=== PATIENT | female | born 1935 | race Caucasian/White ===

== ENCOUNTER → 2016-03-09 | Outpatient (CLI) | payer OTHER ==
--- NOTE | 2016-03-09 08:55 | US ---
Ultrasound Extremity Nonvascular. HISTORY: Tender mass right ankle. FINDINGS: Ultrasound was performed of the anterior right ankle at the area of palpable abnormality. T his corresponds to an echogenic foci with shadowing suggesting a calcification measuring 9 mm. This i s in the subcutaneous fat superficial to the muscle, extensor digitorum longus muscle and central ten don. IMPRESSION: 9 mm focal area of calcification in the subcutaneous fat corresponding to the palpable ab normality. This could represent calcific deposition disease or soft tissue calcification or ossificat ion from trauma.
== END ==
LOC: BMCIMAGING 07:50
PROVIDERS: ATTEND Internal Medicine
DX: R22.41 Localized swelling, mass and lump, right lower limb (principal)

== ENCOUNTER → 2016-08-02 | Outpatient (CLI) | payer OTHER | LOC: BMCIMAGING 10:57 | PROVIDERS: ATTEND Emergency Medicine | DX: M25.571 Pain in right ankle and joints of right foot (principal); M79.89 Other specified soft tissue disorders ==

== ENCOUNTER → 2017-08-15 | Outpatient (CLI) | payer OTHER | LOC: BMCIMAGING 07:58 | PROVIDERS: ATTEND Internal Medicine Gastroenterology | DX: K74.69 Other cirrhosis of liver (principal); I70.0 Atherosclerosis of aorta ==

== ENCOUNTER → 2018-01-25 | Outpatient (CLI) | payer OTHER | LOC: BMCIMAGING 14:33 | PROVIDERS: ATTEND Internal Medicine | DX: R91.8 Other nonspecific abnormal finding of lung field (principal); J90 Pleural effusion, not elsewhere classified ==

== ENCOUNTER → 2018-02-07 | Outpatient (CLI) | payer OTHER | LOC: BMCIMAGING 13:16 | PROVIDERS: ATTEND Internal Medicine | DX: J18.9 Pneumonia, unspecified organism (principal); J90 Pleural effusion, not elsewhere classified ==

== ENCOUNTER 2018-02-11 11:25 | Inpatient (IN) | payer OTHER ==
--- NOTE | 2018-02-11 11:47 | EDPHY ---
H & P Time Seen by Provider: 02/11/18 11:31 HPI/ROS: CHIEF COMPLAINT: Cough and fatigue HISTORY OF PRESENT ILLNESS: Patient was 1st diagnosed with pneumonia about 10 days ago by her primary care physician Dr. Fina Dowd. She had been having a fever and chills for 2 weeks. She was initially treated with azithromycin and is currently on Levaquin. She is feeling severe fatigue, continued to have worse cough. Feels she can't take care of herself at home. Little bit short of breath but no chest pain and no sputum production, no hemoptysis or leg swelling. REVIEW OF SYSTEMS: Eye: no change in vision ENT: no sore throat Cardiac: no chest pain or syncope Pulmonary: HPI Abdomen: no vomiting, diarrhea, abdominal pain Musculoskeletal: no back pain Skin: no rash Neuro: no headache Constitutional: HPI : no urinary symptoms A comprehensive 10 point review of systems is otherwise negative aside from elements mentioned in the history of present illness. PAST MEDICAL HISTORY: Includes hepatitis-C, macular degeneration, depression, bladder cancer. Social history: Here with son, smoker General Appearance: Alert and conversant, cooperative. Eyes: No scleral icterus. ENT, Mouth: Dry mucous membranes. Respiratory: Decreased breath sounds at the right base on the right midlung. Cardiovascular: Regular rate and rhythm. Gastrointestinal: Abdomen is soft and non tender. Neurological: Alert, face symmetric, normal motor and sensory in extremities. Skin: Warm and dry, no rashes. Musculoskeletal: No peripheral edema. Psychiatric: Not agitated. Emergency Department course/MDM: Admission for pneumonia and hypoxemia with O2 sat 84%. IV fluids for clinical dehydration. Respiratory pathogen panel testing. 1230: D-dimer screening initially considered for pulmonary embolism with normal WBC and afebrile. After discussion with hospitalist will do CTA given higher suspicion for alternative diagnosis with normal WBC, afebrile, not getting better after 2 separate antibiotic courses, elevated D-dimer. IV Levaquin 750. IV antibiotics, hospitalist admission. Does not have SIRS criteria or severe sepsis on admission. 1330: Results and plan reviewed with patient and son. Additional oxygen applied on arrival. Smoking Status: Current some day smoker Constitutional: Initial Vital Signs Temperature (C) 36.6 C 02/11/18 11:34 Heart Rate 70 02/11/18 11:34 Respiratory Rate 20 02/11/18 11:34 Blood Pressure 109/64 12/23/18 11:34 O2 Sat (%) 84 L 02/11/18 11:34 O2 Delivery Mode Nasal Cannula O2 (L/minute) 2 Allergies/Adverse Reactions: azithromycin Allergy (Verified 02/11/18 12:52) Other-Enter Comments Penicillins Allergy (Verified 02/11/18 12:52) Other-Enter Comments Home Medications: Medication Instructions Recorded Albuterol Sulfate [Ventolin Hfa] 1 - 2 puffs IH Q4H PRN 02/11/18 Carboxymethylcellulose Sodium 1 - 2 drops EACHEYE DAILY PRN 02/11/18 [Refresh Tears] Escitalopram Oxalate [Lexapro] 5 mg PO DAILY 02/11/18 LORazepam [Ativan (*)] 0.25 mg PO HS PRN 02/11/18 levOFLOXACIN [Levofloxacin] 500 mg PO DAILY 02/11/18 Medical Decision Making - Diagnostics Imaging Results: Imaging Impressions Chest X-Ray 02/11/18 11:58 Impression: 1. Prominent interstitial markings diffusely with patchy bilateral bibasilar infiltrates and small effusions. Consider bilateral pneumonia versus pulmonary edema possibly from cardiogenic source or systemic process such as drug reaction. Chest/Thorax CTA 02/11/18 12:46 Impression: 1. No evidence of pulmonary embolus using CT protocol. 2. Prominent interstitial markings diffusely bilaterally with focal dense consolidation/pneumonia suspected inferior aspect right upper lobe anteromedially. 3. Bilateral pleural effusions moderate on the right and mild on the left with adjacent compressive atelectatic change as well as subsegmental atelectasis suspected inferior lingula. This could be secondary to cardiogenic edema versus interstitial infiltrate with reactive effusions Imaging: I viewed and interpreted images myself Differential Diagnosis: Differential diagnosis considered for shortness of breath including but not limited to pulmonary infectious process, COPD, asthma, pulmonary embolus and congestive heart failure. Consult/Admit Bed Type: [place] [id number] Critical Care Time: Critical care time spent by me, Dr. Freeman, exclusively with the care of this patient was 30 minutes, exclusive of PA or SYSTEMS ARCHITECT time and exclusive of separate procedures. The organ system at risk was pulmonary with hypoxemia and I ordered IV fluids, supplemental oxygen, IV antibiotics to stabilize the patient and prevent worsening of the patient's condition. - Data Points Laboratory Results: Laboratory Results 02/11/18 11:55 02/11/18 11:55 02/11/1818 02/11/18 12:06 11:55 11:55 WBC 4.16 10^3/uL 10^3/uL (3.80-9.50) RBC 4.62 10^6/uL 10^6/uL (4.18-5.33) Hgb 15.7 g/dL g/dL (12.6-16.3) Hct 45.7 % % (38.0-47.0) MCV 98.9 fL fL (81.5-99.8) MCH 34.0 pg pg (27.9-34.1) MCHC 34.4 g/dL g/dL (32.4-36.7) RDW 13.1 % % (11.5-15.2) Plt Count 206 10^3/uL 10^3/uL (150-400) MPV 9.3 fL fL (8.7-11.7) Neut % (Auto) 72.2 % % (39.3-74.2) Lymph % (Auto) 11.5 % L % (15.0-45.0) [place] % (Auto) 12.5 % % (4.5-13.0) Eos % (Auto) 2.2 % % (0.6-7.6) Baso % (Auto) 1.4 % % (0.3-1.7) Nucleat RBC Rel Count 0.0 % % (0.0-0.2) Absolute Neuts (auto) 3.00 10^3/uL 10^3/uL (1.70-6.50) Absolute Lymphs (auto) 0.48 10^3/uL L 10^3/uL (1.00-3.00) Absolute Monos (auto) 0.52 10^3/uL 10^3/uL (0.30-0.80) Absolute Eos (auto) 0.09 10^3/uL 10^3/uL (0.03-0.40) Absolute Basos (auto) 0.06 10^3/uL 10^3/uL (0.02-0.10) Absolute Nucleated RBC 0.00 10^3/uL 10^3/uL (0-0.01) Immature Gran % 0.2 % % (0.0-1.1) Immature Gran # 0.01 10^3/uL 10^3/uL (0.00-0.10) RBC/WBC/PLT Morphology TNP Platelet Estimate TNP PT 15.0 SEC SEC (12.0-15.0) INR 1.16 (0.83-1.16) APTT 29.5 SEC SEC (23.0-38.0) D-Dimer VBG Lactic Acid 2.0 mmol/L mmol/L (0.7-2.1) Sodium Potassium Chloride Carbon Dioxide Anion Gap BUN Creatinine Estimated GFR Glucose Calcium Total Bilirubin 02/11/18 02/11/18 11:55 11:50 WBC RBC Hgb Hct MCV MCH MCHC RDW Plt Count MPV Neut % (Auto) Lymph % (Auto) [place] % (Auto) Eos % (Auto) Baso % (Auto) Nucleat RBC Rel Count Absolute Neuts (auto) Absolute Lymphs (auto) Absolute Monos (auto) Absolute Eos (auto) Absolute Basos (auto) Absolute Nucleated RBC Immature Gran % Immature Gran # RBC/WBC/PLT Morphology Platelet Estimate PT INR APTT D-Dimer 2.16 ug/mLFEU H ug/mLFEU (0.00-0.50) VBG Lactic Acid Sodium 135 mEq/L mEq/L (135-145) Potassium 4.3 mEq/L mEq/L (3.5-5.2) Chloride 106 mEq/L mEq/L (97-110) Carbon Dioxide 23 mEq/l mEq/l (22-31) Anion Gap 6 mEq/L mEq/L (6-14) BUN 19 mg/dL mg/dL (7-23) Creatinine 0.8 mg/dL mg/dL (0.6-1.0) Estimated GFR > 60 Glucose 106 mg/dL H mg/dL (70-100) Calcium 8.8 mg/dL mg/dL (8.5-10.4) Total Bilirubin 1.4 mg/dL mg/dL (0.1-1.4) Medications Given: Levofloxacin/Dextrose (Levaquin 750 Mg (Premix)) 150 mls @ 100 mls/hr IV EDNOW ONE PRN Reason: Protocol Stop: 02/11/18 14:17 Last Admin: 02/11/18 12:55 Dose: 150 mls Discontinued Medications Sodium Chloride (Ns) 1,200 mls @ 2,400 mls/hr 30 ml/kg infuse over 30 min ( 1200 ml) IV EDNOW ONE PRN Reason: Protocol Stop: 02/11/18 12:26 Last Admin: 02/11/18 12:10 Dose: 1,200 mls Departure - Departure Disposition: [facility] Inpatient Acute Clinical Impression: Acute respiratory failure Qualifiers: Respiratory failure complication: hypoxia Qualified Code(s): J96.01 - Acute respiratory failure with hypoxia Pneumonia Qualifiers: Pneumonia type: due to unspecified organism Laterality: right Lung location: lower lobe of lung Qualified Code(s): J18.1 - Lobar pneumonia, unspecified organism Condition: Fair
[2018-02-11] MEDS ORDERED: NS 1,200 ML IV ONE (11:57)
[2018-02-11 12:07] LABS: PLATELET COUNT 206 10^3/uL (150-400)
[2018-02-11 12:19] LABS: INR 1.16 (0.83-1.16)
[2018-02-11] MEDS ORDERED: IOPAMIDOL (ISOVUE 370) 100 ML BTL IV ONE (12:57)
[2018-02-11] MEDS ORDERED: LORazepam 0.5 MG TAB PO PRN (14:19)
[2018-02-11] MEDS ORDERED: TEARS/DEXTRAN 70/HYPROMELLOSE 15 ML OPHT.BTL EACHEYE PRN (14:29)
[2018-02-11] MEDS ORDERED: ACETAMINOPHEN 325 MG TAB PO PRN (14:50)
[2018-02-11] MEDS ORDERED: ONDANSETRON 4 MG/2 ML VIAL IVP PRN (14:50)
[2018-02-11] MEDS ORDERED: ONDANSETRON DISINTEGRATING 4 MG TAB PO PRN (14:50)
[2018-02-11] MEDS ORDERED: ALBUTEROL 3 ML DEYVIAL IH PRN (14:50)
--- NOTE | 2018-02-11 14:57 | PDGENHP ---
History and Physical - History of Present Illness 82 yo female p/w SOB. Patient was 1st diagnosed with pneumonia about 10 days ago by her primary care physician Dr. Fina Dowd. She had been having a fever and chills for 2 weeks. She was initially treated with azithromycin and is currently on Levaquin. She is feeling severe fatigue, continued to have worse cough. no chest pain and no sputum production, no hemoptysis or leg swelling. no palpitations +tobacco use, recently quit no hx of CAD, CHF Does not meet Sepsis/SIRS criteria PAST MEDICAL HISTORY: Includes hepatitis-C, macular degeneration, depression, bladder cancer. Social history: Here with son, smoker FmHx: non contributory Studies: no leukocytosis resp panel negative CXR: bilateral infiltrates CTA: no PE. patchy infiltrates, edema vs pneumonia, moderate right pleural effusion History Information - Allergies/Home Medication List Allergies/Adverse Reactions: azithromycin Allergy (Verified 02/11/18 12:52) Other-Enter Comments Penicillins Allergy (Verified 02/11/18 12:52) Other-Enter Comments Home Medications: Albuterol Sulfate [Ventolin Hfa] 1 - 2 puffs IH Q4H PRN 02/11/18 [Last Taken Unknown] Carboxymethylcellulose Sodium [Refresh Tears] 1 - 2 drops EACHEYE DAILY PRN [Last Taken Unknown] Escitalopram Oxalate [Lexapro] 5 mg PO DAILY 02/11/18 [Last Taken 02/06/18] LORazepam [Ativan (*)] 0.25 mg PO HS PRN 02/11/18 [Last Taken 02/09/18] levOFLOXACIN [Levofloxacin] 500 mg PO DAILY 02/11/18 [Last Taken 02/11/18] I have personally reviewed and updated: medical history, social history - Social History Smoking Status: Current some day smoker Review of Systems Review of Systems: ROS: 10pt was reviewed & negative except for what was stated in HPI & below Physical Exam Physical Exam: Temp Pulse Resp BP Pulse Ox 36.8 C 77 20 107/61 90 L 02/11/18 14:15 02/11/18 14:15 02/11/18 14:15 02/11/18 14:15 02/11/18 14:15 O2 (L/minute) 2 Constitutional: no apparent distress Eyes: PERRL, EOMI Ears, Nose, Mouth, Throat: moist mucous membranes, hearing normal Cardiovascular: regular rate and rhythym, No edema Respiratory: no respiratory distress, reduced air movement, expiratory wheeze, No rhonchi, No other (no crackles) Gastrointestinal: normoactive bowel sounds Skin: warm Neurologic: AAOx3 Psychiatric: interacting appropriately, not anxious, not encephalopathic Lymph, Heme, Immunologic: No petechiae Lab Data & Imaging Review 02/11/18 11:55 02/11/18 11:55 WBC 4.16 10^3/uL (3.80-9.50) 02/11/18 11:55 RBC 4.62 10^6/uL (4.18-5.33) 02/11/18 11:55 Hgb 15.7 g/dL (12.6-16.3) 02/11/18 11:55 Hct 45.7 % (38.0-47.0) 02/11/18 11:55 MCV 98.9 fL (81.5-99.8) 02/11/18 11:55 MCH 34.0 pg (27.9-34.1) 02/11/18 11:55 MCHC 34.4 g/dL (32.4-36.7) 02/11/18 11:55 RDW 13.1 % (11.5-15.2) 02/11/18 11:55 Plt Count 206 10^3/uL (150-400) 02/11/18 11:55 MPV 9.3 fL (8.7-11.7) 02/11/18 11:55 Neut % (Auto) 72.2 % (39.3-74.2) 02/11/18 11:55 Lymph % (Auto) 11.5 % (15.0-45.0) L 02/11/18 11:55 [place] % (Auto) 12.5 % (4.5-13.0) 02/11/18 11:55 Eos % (Auto) 2.2 % (0.6-7.6) 02/11/18 11:55 Baso % (Auto) 1.4 % (0.3-1.7) 02/11/18 11:55 Nucleat RBC Rel Count 0.0 % (0.0-0.2) 02/11/18 11:55 Absolute Neuts (auto) 3.00 10^3/uL (1.70-6.50) 02/11/18 11:55 Absolute Lymphs (auto) 0.48 10^3/uL (1.00-3.00) L 02/11/18 11:55 Absolute Monos (auto) 0.52 10^3/uL (0.30-0.80) 02/11/18 11:55 Absolute Eos (auto) 0.09 10^3/uL (0.03-0.40) 02/11/18 11:55 Absolute Basos (auto) 0.06 10^3/uL (0.02-0.10) 02/11/18 11:55 Absolute Nucleated RBC 0.00 10^3/uL (0-0.01) 02/11/18 11:55 Immature Gran % 0.2 % (0.0-1.1) 02/11/18 11:55 Immature Gran # 0.01 10^3/uL (0.00-0.10) 02/11/18 11:55 RBC/WBC/PLT Morphology TNP 02/11/18 11:55 Platelet Estimate TNP 02/11/18 11:55 PT 15.0 SEC (12.0-15.0) 02/11/18 11:55 INR 1.16 (0.83-1.16) 02/11/18 11:55 APTT 29.5 SEC (23.0-38.0) 02/11/18 11:55 D-Dimer 2.16 ug/mLFEU (0.00-0.50) H 02/11/18 11:50 VBG Lactic Acid 2.0 mmol/L (0.7-2.1) 02/11/18 12:06 Sodium 135 mEq/L (135-145) 02/11/18 11:55 Potassium 4.3 mEq/L (3.5-5.2) 02/11/18 11:55 Chloride 106 mEq/L (97-110) 02/11/18 11:55 Carbon Dioxide 23 mEq/l (22-31) 02/11/18 11:55 Anion Gap 6 mEq/L (6-14) 02/11/18 11:55 BUN 19 mg/dL (7-23) 02/11/18 11:55 Creatinine 0.8 mg/dL (0.6-1.0) 02/11/18 11:55 Estimated GFR > 60 02/11/18 11:55 Glucose 106 mg/dL (70-100) H 02/11/18 11:55 Calcium 8.8 mg/dL (8.5-10.4) 02/11/18 11:55 Total Bilirubin 1.4 mg/dL (0.1-1.4) 02/11/18 11:55 Assessment & Plan Assessment: #Possible Pneumonia #Likely COPD Exacerbation #Fever, reported, none thus far #Bilateral pleural effusion: small left, moderate right #generalized weakness and deconditioning #likely PCMN #Weight Loss Plan: The etiology of her resp symptoms are multifactorial. I have a high suspicion that she has underlying COPD and has a COPD exacerbation. I will start her on steroids and nebs. She does not have any leukocytosis. She was given Levaquin again in the ER. Her Viral studies are negative. For now, I will not continue any abx. Will check a procalcitonin. If abx are started, would not continue Levaquin She will have a trial of Diuretics. Will obtain a TTE. The etiology of the pleural effusions is unknown. It may respond to diuretics. Given the weight loss, ascites, cytology may be important. Will order a thoracentesis. Will also order CT A/P SCD's. Can start chemical DVT proph tomorrow after thoracentesis. Dietary to evaluate for PCMN, obtain CMP
[2018-02-11] MEDS ORDERED: methylPREDNISolone SOD SUCC 125 MG/2 ML VIAL IVP ONE (15:00)
[2018-02-11] MEDS ORDERED: FUROSEMIDE 20 MG/2 ML VIAL IVP ONE (15:08)
[2018-02-11] MEDS ORDERED: [UNRECOGNIZED DRUG - OTHER] EACHEYE PRN (16:00)
[2018-02-11] MEDS ORDERED: CARBOXYMETHYLCELLULOSE EACHEYE PRN (16:00)
--- NOTE | 2018-02-11 16:30 | ASMTCMCOM ---
CM Note CM Note Notes: Case Management Chart Review for Discharge Support: Patient is a 82 year old female who presented to [facility] ED for cough and fatigue, she had been diagnosed with pneumonia about 10 days ago by her PCP Dr. Fina Dowd, treated with antibiotics. Past medical history includes: Hepatitis C, macular degeneration, depression, bladder cancer. Son was present at ED. Patient admitted and being followed for COPD exacerbation. Pending PT/OT & Dietary consult. CM to follow. D/C Plan: TBD Date Signed: 02/11/2018 04:29 PM Electronically Signed By:Darlene Posey
[2018-02-11] MEDS: IPRATROPIUM/ALBUTEROL 3 ML DEYVIAL IH SCH ×2 (17:09→20:54)
--- NOTE | 2018-02-11 18:00 | PDMN ---
Medical Necessity Medical necessity: Pt meets INPT criteria per MD as of 02/11/18 and [facility] Disease GRG (est. LOS >2 MN for eval/tx of possible pneumonia, likely COPD exacerbation, bilateral pleural effusion with thoracentesis ordered, generalized weakness and deconditioning, weight loss).
[2018-02-11] MEDS ORDERED: IOPAMIDOL (ISOVUE-300) 100 ML BTL ONE (18:49)
[2018-02-12 05:21] LABS: PLATELET COUNT 165 10^3/uL (150-400)
[2018-02-12] MEDS: IPRATROPIUM/ALBUTEROL 3 ML DEYVIAL IH SCH ×4 (05:36→21:27)
[2018-02-12] MEDS: ESCITALOPRAM OXALATE 10 MG TAB PO SCH (09:43)
[2018-02-12] MEDS: predniSONE 20 MG TAB PO SCH (09:43)
--- NOTE | 2018-02-12 10:31 | ECHO ---
[email or web address] [address] [address] Main: [phone] Fax: Transthoracic Echocardiogram Name: MARVA CORNEJO MR#: [id number] Study Date: 02/12/2018 Study Time: 08:34 AM Date of : 1935 Age: 82 year(s) Height: 157.5 cm (62 in.) Weight: 40.37 kg (89 lb.) BSA: 1.35 m2 Gender: Female Examination: Echo Indication: Shortness of breath, Respiratory distress Image Quality: Contrast: Requested by: Todd Myers BP: 97 mmHg/64 mmHg Heart Rate: Rhythm: Tachycardia Indication: Shortness of breath, Respiratory distress Procedure Staff Policy Writer: Reid Muller RDCS Reading Physician: Vega Ruggiero MD Requesting Provider: Conclusions: Normal size left ventricle. Mild concentric LV hypertrophy. Global hypercontractility of the left ventricle. EF is 63 %. No regional wall motion abnormality. Normal RV function. The left atrium is normal in size. The right atrium is normal in size. The aortic valve is tri-leaflet. There is no significant aortic valve regurgitation. Hypermobile structure on non-coronary cusp on the aortic side consistent with vegetation noted on the aortic valve.. No pericardial effusion. There is an echodensity on the Non Coronary Cusp of the Aortic Valve consistent with vegeation. Well seen. No need for RITESH . Measurements: Chambers Valvular Assessment AV/MV Valvular Assessment TV/PV Normal Normal Normal Name Value Range Name Value Range Name Value Range Ao Mariela (MM): 3.3 cm (2.2 cm-3.7 AV Vmax: 1.75 m/s (1 m/s-1.7 TR Vmax: 2.90 mm/s ( - ) cm) m/s) TR PGmax: 34 mmHg ( - ) IVSd (2D): 1.1 cm (0.6 cm-1.1 AV maxP mmHg ( - ) syst. PAP: 39 mmHg ( - ) cm) LVOT Vmax: 1.56 m/s (0.7 m/s-1.1 PV Vmax: 1.11 m/s (0.6 m/s-0.9 LVDd (2D): 3.3 cm (3.9 cm-5.3 m/s) m/s) cm) MV E Vmax: 0.76 m/s ( - ) PV PGmax: 5 mmHg ( - ) LVDs (2D): 2.2 cm (2.1 cm-4 MV A Vmax: 1.28 m/s ( - ) cm) MV E/A: 0.59 ( - ) LVPWd (2D): 1.1 cm ( - ) Patient: MARVA CORNEJO Study Date: 02/12/2018 Page 1 of 2 08:34 AM LVEF (2D): 63 (>=54 %) Continued Measurements: Chambers Valvular Assessment AV/MV Valvular Assessment TV/PV Name Value Name Value Name Value LADs Lon.2 cm MV E' Septal: 0.11 m/s CVP (est.): 5 mmHg LA Area: 18.9 cm2 MV E/E' Septal: 6.70 LA Volume: 46 ml MV E/E' Lateral: 5.80 LA Volume Index: 34.1 ml/m2 Findings: Left Ventricle: Normal size left ventricle. Mild concentric LV hypertrophy. Global hypercontractility of the left ventricle. EF is 63 %. No regional wall motion abnormality. Right Ventricle: Normal size right ventricle. Normal RV function. Left Atrium: The left atrium is normal in size. Right Atrium: The right atrium is normal in size. Mitral Valve: Mild mitral valve leaflet calcification is present. Trivial mitral valve regurgitation. No mitral stenosis is present. Aortic Valve: The aortic valve is tri-leaflet. There is no significant aortic valve regurgitation. Hypermobile structure on non-coronary cusp on the aortic side consistent with vegetation noted on the aortic valve.. Tricuspid Valve: The tricuspid valve appears normal. Trivial to mild tricuspid valve regurgitation. The pulmonary artery pressure is normal. Pulmonic Valve: The pulmonic valve is normal in appearance and function. Aorta: The aorta is normal. Pericardium: No pericardial effusion. (No Signature Object) Patient: MARVA CORNEJO Study Date: 02/12/2018 Page 2 of 2 08:34 AM [id number]
[2018-02-12] MEDS ORDERED: LIDOCAINE 1% 300 MG/30 ML SDV ONE (13:09)
--- NOTE | 2018-02-12 13:48 | HOSPPROG ---
Hospitalist Progress Note Assessment/Plan: DIAGNOSES: *Acute Hypoxemic Resp Failure needing O2 *RML consolidation and R pleural effusion - ? Etiology *Absence of fever, normal wbc, and normal procalcitonin here *LDH > 1400 *Ao valve vegetation (otherwise nl echo) *negative resp pathogen pcr panel, nothing in blood cxs so far *adrenal gland nodule on CT stable from prior study *hx of treated Hep C: cirrhosis and portal HTN seen on CT at present; also a couple of hepatic cysts that appear likely benign to me *hx of Bladder Cancer Absence of fever and normal procalcitonin make pneumonia less likely, but her tachycardia, cough, and reported outpatient fevers would be suggestive of pneumonia. ? if she could have postobstructive disease. The very high LDH could be concerning for a malignancy. Echo shows no signs of CHF or ischemia, and her clinical scenario does not really suggest cardiac cause. Notably however there is and Ao valve vegetation. The clinical significance of this is uncertain at the moment. PLANS: * She will have a thoracentesis today and I have ordered cytologies, cell count , LDH, pH and other labs * At this time will continue prednisone and without antibiotic and observe closely for her progress * Further plans after we have her pleural fluid studies and depending on her clinical progress * She will need ongoing radiologic evaluations to assess for resolution of the infiltrate * Follow blood cultures closely, and will review her case with Infectious Disease and pulmonology if we do not come to obvious clinical diagnosis SUBJECTIVE: Feel somewhat better today with better energy No chills or sweats No shortness of breath with oxygen on at rest but does get a bit winded with exertion here Still some cough No pain OBJECTIVE Vitals reviewed: Remains tachycardic with pulse in the 110-120 range. No fevers, otherwise stable vitals overall Is still requiring 2-3 L oxygen Web Producer, my review: Sinus Exam: alert oriented reasonably relaxed Fairly thin woman with minimal subcutaneous fat skin warm dry color ok resps not labored at rest on oxygen lungs clear BSs heart regular abd soft nondistended nontender, bowel sounds present limbs warm, no edema iv site ok Lab data: procalcitonin is negative Echocardiogram: nl EF 63, no WMA, normal RV fxn. A vegetation is seen on noncoronary cusp of Ao Valve I reviewed her CT scan images from admission, there is moderate pleural effusion on the R, with a RML consolidation; I do not see a mass but with the it infiltrate, effusions and atelectasis it would be possible to potentially miss something. Objective: Vital Signs Temp Pulse Resp BP Pulse Ox 36.6 C 111 H 16 125/65 H 91 L 02/12/18 12:00 02/12/18 12:00 02/12/18 12:00 02/12/18 12:00 02/12/18 12:00 Laboratory Results 02/12/18 04:43 02/12/18 04:54 02/11/18 02/12/18 02/13/18 06:59 06:59 06:59 Intake Total 1400 Output Total 1800 Balance -400 PT 15.0 SEC (12.0-15.0) 02/11/18 11:55 INR 1.16 (0.83-1.16) 02/11/18 11:55 - Time Spent With Patient Time Spent with Patient: greater than 35 minutes Time Spent with Patient: Greater than 35 minutes spent on this patients care, greater than 50% of time spent counseling, educating, and coordinating care regarding the above mentioned plan. ICD10 Worksheet Patient Problems: Problems Problem Status Onset Acute respiratory failure Acute Chronic Disease Mgmt/Transitional Care Acute Pneumonia Acute
[2018-02-12] MEDS: CEPACOL LOZENGE PO PRN ×2 (15:55→19:13)
[2018-02-12] MEDS: LORazepam 0.5 MG TAB PO PRN (21:51)
[2018-02-12] MEDS: MBX SOLN 30 ML BOTTLE PO PRN (21:58)
[2018-02-13 05:02] LABS: PLATELET COUNT 172 10^3/uL (150-400)
[2018-02-13] MEDS: IPRATROPIUM/ALBUTEROL 3 ML DEYVIAL IH SCH ×4 (05:43→22:03)
[2018-02-13] MEDS: ESCITALOPRAM OXALATE 10 MG TAB PO SCH (08:43)
[2018-02-13] MEDS: predniSONE 20 MG TAB PO SCH (08:43)
--- NOTE | 2018-02-13 13:09 | HOSPPROG ---
Hospitalist Progress Note Assessment/Plan: DIAGNOSES: *Acute Hypoxemic Resp Failure needing O2 *RML consolidation and R pleural effusion (exudative) - ? Etiology *Absence of fever, normal wbc, and normal procalcitonin here *serum LDH > 1400 ? etiology *Ao valve vegetation (otherwise nl echo) *negative resp pathogen pcr panel, nothing in blood cxs so far *adrenal gland nodule on CT stable from prior study *hx of treated Hep C: cirrhosis and portal HTN seen on CT at present; also a couple of hepatic cysts that appear likely benign to me *hx of Bladder Cancer Absence of fever and normal procalcitonin make pneumonia less likely, but her tachycardia, cough, and reported outpatient fevers would be suggestive of pneumonia. ? if she could have postobstructive disease. The very high LDH could be concerning for a malignancy. Echo shows no signs of CHF or ischemia, and her clinical scenario does not really suggest cardiac cause. Notably however there is and Ao valve vegetation. The clinical significance of this is uncertain at the moment. PLANS: * continue prednisone but will try decrease to 20 mg * continue off abx * will review w pulmonology * await cytology and cultures from pl fluid * continue to increase activity Pt had many questions today which I answered for her in detail SUBJECTIVE: feels less fatigued still w a lot of cough able to walk in burr comfortably on O2 no new sxs OBJECTIVE Vitals reviewed: Remains tachycardic though now 100-108 No fevers, otherwise stable vitals overall Is still requiring oxygen but less today Proofer Prepress, my review: Sinus Exam: alert oriented reasonably relaxed Fairly thin woman with minimal subcutaneous fat skin warm dry color ok resps not labored at rest on oxygen lungs clear BSs heart regular abd soft nondistended nontender, bowel sounds present limbs warm, no edema iv site ok Lab data: pleural fluid studies: LDH 1989 (serum 1400), 2200 wbc (41% lymph, 6% pmn), 1400 rbc, pH 7.4 cbc PMNs up to 6700 today likely from steroids liver panel still mild AST elevation Echocardiogram: nl EF 63, no WMA, normal RV fxn. A vegetation is seen on noncoronary cusp of Ao Valve I reviewed her CT scan images from admission, there is moderate pleural effusion on the R, with a RML consolidation; I do not see a mass but with the it infiltrate, effusions and atelectasis it would be possible to potentially miss something. micro: all cultures negative to date neg gram stain from pleural fl negative viral resp pcr panel Objective: Vital Signs Temp Pulse Resp BP Pulse Ox 36.9 C 102 H 16 108/69 92 02/13/18 11:39 02/13/18 11:39 02/13/18 11:39 02/13/18 11:39 02/13/18 11:39 Microbiology 02/12/18 13:55 Mycobacterial Smear (GERARDO) - Final Thoracic Fluid - Aspirate 02/11/18 13:55 Gram Stain - Final Thoracic Fluid - Aspirate Laboratory Results 02/13/18 04:38 02/12/18 04:54 02/12/18 02/13/18 02/14/18 06:59 06:59 06:59 Intake Total 1400 1350 Output Total 1800 650 Balance -400 700 PT 15.0 SEC (12.0-15.0) 02/11/18 11:55 INR 1.16 (0.83-1.16) 02/11/18 11:55 - Time Spent With Patient Time Spent with Patient: greater than 35 minutes Time Spent with Patient: Greater than 35 minutes spent on this patients care, greater than 50% of time spent counseling, educating, and coordinating care regarding the above mentioned plan. ICD10 Worksheet Patient Problems: Problems Problem Status Onset Acute respiratory failure Acute Chronic Disease Mgmt/Transitional Care Acute Pneumonia Acute
--- NOTE | 2018-02-13 14:15 | ASMTCMCOM ---
CM Note CM Note Notes: Pt admitted with pneumonia but still being worked up d/t pleural effusion. She has been cleared for home by PT/OT, anticipate she will dc home with support of son when medically stable. DC Plan: Independent Date Signed: 02/13/2018 02:15 PM Electronically Signed By:Franci Parker RN
[2018-02-13] MEDS: MBX SOLN 30 ML BOTTLE PO PRN (19:30)
[2018-02-13] MEDS: LORazepam 0.5 MG TAB PO PRN (23:22)
[2018-02-14] MEDS: IPRATROPIUM/ALBUTEROL 3 ML DEYVIAL IH SCH ×4 (06:56→21:35)
[2018-02-14] MEDS: ESCITALOPRAM OXALATE 10 MG TAB PO SCH (08:58)
[2018-02-14] MEDS: predniSONE 20 MG TAB PO SCH (08:58)
--- NOTE | 2018-02-14 13:43 | HOSPPROG ---
Hospitalist Progress Note Assessment/Plan: DIAGNOSES: *Acute Hypoxemic Resp Failure needing O2, likely has chronic hypoxemia as well *RML consolidation and R pleural effusion (exudative) - ? Etiology; cultures neg to date and cytology pending *Absence of fever, normal wbc, and normal procalcitonin here *serum LDH > 1400 ? etiology *Ao valve vegetation (otherwise nl echo) *negative resp pathogen pcr panel, nothing in blood cxs so far *adrenal gland nodule on CT stable from prior study *hx of treated Hep C: cirrhosis and portal HTN seen on CT at present; also a couple of hepatic cysts that appear likely benign to me *hx of Bladder Cancer Normal temperatures at home and here, normal wbc's, normal procalcitonin, neg resp pathogen panel and cultures, and lack of symptom response to two different outpatient antibiotics would all argue against infectious etiology, however her CT findings have a typical appearance of a bacterial pneumonia among other causes. ? if she could have postobstructive disease. The very high LDH could be concerning for a malignancy such as a lymphoma though no mass is identified. Notably there is an Ao valve vegetation of unclear clinical significance on echo. Her imaging studies do show signs of obstructive dz with hyperexpansion, as expected given her long smoking history. 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, 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: Sinus Exam: alert oriented relaxed Fairly thin woman with minimal subcutaneous fat skin warm dry color ok resps not labored at rest on oxygen lungs clear BSs though diminished heart regular abd soft nondistended nontender, bowel sounds present limbs warm, no edema iv site ok Lab data: pleural fluid studies: LDH 1989 (serum 1400), 2200 wbc (41% lymph, 6% pmn), 1400 rbc, pH 7.4 micro: all cultures negative to date neg gram stain from pleural fl negative viral resp pcr panel Objective: Vital Signs Temp Pulse Resp BP Pulse Ox 36.7 C 90 18 112/72 91 L 02/14/18 07:30 02/14/18 11:20 02/14/18 11:20 02/14/18 07:30 02/14/18 11:20 Microbiology 02/11/18 13:55 Gram Stain - Final Thoracic Fluid - Aspirate 02/12/18 13:55 Mycobacterial Smear (GERARDO) - Final Thoracic Fluid - Aspirate Laboratory Results 02/13/18 04:38 02/12/18 04:54 02/13/18 02/14/18 02/15/18 06:59 06:59 06:59 Intake Total 1350 550 Output Total 650 Balance 700 550 PT 15.0 SEC (12.0-15.0) 02/11/18 11:55 INR 1.16 (0.83-1.16) 02/11/18 11:55 ICD10 Worksheet Patient Problems: Problems Problem Status Onset Acute respiratory failure Acute Chronic Disease [facility]/Transitional Care Acute Pneumonia Acute
--- NOTE | 2018-02-14 16:35 | PDCONSULT ---
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 Suspect effusion was initially neutrophilic in the process of resolving has become lymphocytic with RBCs. Differential diagnosis for lymphocytic effusions include malignancy, TB pleurisy, autoimmune disease, benign asbestos related pleural effusion, idiopathic. PH was normal however meter pH is on pleural fluid are frequently running correctly and not reliable. Typically glucose levels, WBC and LDH are most indicative of bacterial infection. Is also possible that patient has an obstructing endobronchial lesion in her right middle lobe leading to right middle lobe collapse with surrounding pneumonia. I think this is less likely however possible. Given advanced age and frailty patient is not a good surgical candidate will be treated with local XRT if there is truly an endobronchial lesion. However fishmouth appearing right middle lobes and associated right middle lobe atelectasis a relatively common the population. After risk benefit discussion with patient we have decided to perform repeat CT chest in 4-6 weeks with PFTs and repeat laboratory data including LDH. If abnormalities persist at that time will proceed with bronchoscopy # complicated parapneumonic effusion, lymphocytic # resolving pneumonia # COPD # acute hypoxemic respiratory failure # tobacco dependence PLAN # okay to discharge from pulmonary perspective # anticipate patient will need nocturnal oxygen therapy # follow-up in Pulmonary Clinic with Dr. Tang in 4-[address] chest noncontrast, PFTs and repeat labs including CBC with diff and LDH. # agree with tapering off oral corticosteroids # patient will need PFTs to qualify for pulmonary rehab, but I agree that rehabilitation is an excellent idea and will decrease future hospitalizations and improve quality of life # counseled on smoking cessation # thank you for this consult allowing me to participate in the care of this patient. Please do not hesitate to call or page with any questions or concerns. CONSULT Was asked by Dr. Neely of [facility] to evaluate this patient for pleural effusion and pneumonia in the setting of underlying COPD and possible malignancy Chief complaint Shortness of breath ALCON Koehler is a very pleasant 82-year-old female with a longstanding smoking history was initially diagnosed 2 weeks prior by her primary care physician with possible COPD exacerbation versus pneumonia. She had initially treated with azithromycin followed by Levaquin. She has had some improvements in cough and URI symptoms however still with malaise and shortness of Breath. At time of admission she denied chest pain, syncope, productive sputum production, hemoptysis, leg swelling, abdominal pain, rashes. She was found to have a moderate right sidede pleural effusion, R sided opacities, and partial RML collapse. She she was treated antibiotics, steroids and underwent thoracentesis. She continues to feel better daily. Allergies Azithromycin, penicillins however has tolerated penicillin noise and azithromycin Medications Albuterol, lorazepam, citalopram Past medical history Anxiety, COPD no PFTs in our system never seen a bar staff, tobacco dependence Social history Lives in [place] has to renders, 60+ pack-year history quit just prior to admission, no illicits, no alcohol Review of systems A comprehensive 10 point review of systems was obtained is negative except as per HPI Physical exam Vitals Afebrile, heart rate 90, blood pressure 1 of their 65 map 77, respiratory rate 16 99% 1 L nasal cannula no distress GEN: Thin NAD, up in bed, interactive NEURO: A&Ox3, CN 2-12 GI HEENT: PERRL, EOMI, MMM, OP clear NECK: supple, trachea midline CHEST normal shape, no pes excavatum CVS: rrr no m/r/g PULM: Decreased breath sounds bilaterally, no wheezes rhonchi or rales ABD: soft, NT, ND, NABS EXT: no swelling, no cyanosis, full ROM SKIN: warm, dry, intact, no rash PSYCH CAM negative, appropriate affect Data Reviewed Significant for a normal white cell count without peripheral eosinophilia, low procalcitonin, markedly elevated LDH, CO2 23 Pleural fluid with 22,000 WBCs 6000 RBCs, 41% lymphocytes, culture negative, LDH 1900, pH 7.4 I personally reviewed interpreted radiographic images well as formal radiology reads 02/11/2018 CTA chest. No PE, mild apical emphysematous changes, diffuse peribronchial thickening, hyperexpanded airways, increased bilateral interstitial markings focal opacities inferior aspect of right upper lobe right lower lobe right middle lobe. Mild to moderate right pleural effusion and small left pleural effusion. No hilar mediastinal lymphadenopathy. Serial chest x-rays after thoracentesis without Navi malacia of fluid
--- NOTE | 2018-02-14 16:38 | ASMTCMCOM ---
CM Note CM Note Notes: Received information from ANNEMARIE Narvaez pt son would like to discuss d/c needs, specifically HHC, with CM. Attempted to talk to pt about HHC first, she was with medical staff. Called pt son Mj [phone], emailed him the HHC list. Mj to research HHC and talk to pt. Mj is also researching unskilled HC for extra support in home. D/c plan of care: Likely HHC RN, which agency is TBD. Date Signed: 02/14/2018 04:38 PM Electronically Signed By:DOTTY Roblero
[2018-02-14] MEDS: MBX SOLN 30 ML BOTTLE PO PRN (19:54)
[2018-02-15] MEDS: ESCITALOPRAM OXALATE 10 MG TAB PO SCH (08:46)
[2018-02-15] MEDS: predniSONE 20 MG TAB PO SCH (08:47)
--- NOTE | 2018-02-15 14:14 | ASMTCMCOM ---
CM Note CM Note Notes: Met with pt, she has been cleared for home by PT/OT, although her son would like her to have some homecare. If pt does not qualify for skilled he may hire non skilled. CM gave son some agency names. DC Plan:TBD Date Signed: 02/15/2018 02:13 PM Electronically Signed By:Franci Parker RN
--- NOTE | 2018-02-15 17:18 | HOSPPROG ---
Hospitalist Progress Note Assessment/Plan: DIAGNOSES: *Acute Hypoxemic Resp Failure needing O2, likely has chronic hypoxemia as well *RML consolidation and R pleural effusion (exudative) - ? Etiology; cultures neg to date and cytology pending *Absence of fever, normal wbc, and normal procalcitonin here *serum LDH > 1400 ? etiology *Ao valve vegetation (otherwise nl echo) *negative resp pathogen pcr panel, nothing in blood cxs so far *adrenal gland nodule on CT stable from prior study *hx of treated Hep C: cirrhosis and portal HTN seen on CT at present; also a couple of hepatic cysts that appear likely benign to me *hx of Bladder Cancer As previously noted the most common expected cause of her illness and imaging findings would be infectious pneumonia, but all of the other findings to go along with or clarify presence of infection are missing or normal. Etiology of high LDH uncertain. At present she is clinically improving and can likely go home tomorrow. Hopefully will have path report and final culture results by then. She will need outpt f/u in pulmonary clinic, and should have repeat CT chest in a month or therabouts to ensure resolution of current findings. In the long run she should have ongoing preventive and other standard care measures for chronic lung disease, and go to pulmonary rehab. 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 Exam: alert oriented relaxed Fairly thin woman with minimal subcutaneous fat skin warm dry color ok resps not labored at rest on oxygen lungs clear BSs though diminished heart regular abd soft nondistended nontender, bowel sounds present limbs warm, no edema iv site ok Lab data: pleural fluid studies: LDH 1989 (serum 1400), 2200 wbc (41% lymph, 6% pmn), 1400 rbc, pH 7.4 micro: all cultures negative to date (blood and pleural fluid) no acid fast organisms in pleural fluid neg gram stain from pleural fl negative viral resp pcr panel Objective: Vital Signs Temp Pulse Resp BP Pulse Ox 37.1 C 96 16 105/73 94 02/15/18 15:30 02/15/18 15:30 02/15/18 15:30 02/15/18 15:30 02/15/18 15:30 Microbiology 02/11/18 13:55 Gram Stain - Final Thoracic Fluid - Aspirate Laboratory Results 02/13/18 04:38 02/12/18 04:54 02/14/18 02/15/18 02/16/18 06:59 06:59 06:59 Intake Total 550 300 Balance 550 300 PT 15.0 SEC (12.0-15.0) 02/11/18 11:55 INR 1.16 (0.83-1.16) 02/11/18 11:55 ICD10 Worksheet Patient Problems: Problems Problem Status Onset Acute respiratory failure Acute Chronic Disease Mgmt/Transitional Care Acute Pneumonia Acute
[2018-02-15] MEDS: LORazepam 0.5 MG TAB PO PRN (21:34)
[2018-02-16] MEDS: ESCITALOPRAM OXALATE 10 MG TAB PO SCH (09:10)
[2018-02-16] MEDS: predniSONE 20 MG TAB PO SCH (09:12)
--- NOTE | 2018-02-16 15:56 | HOSPPROG ---
Hospitalist Progress Note Assessment/Plan: DIAGNOSES: *Acute Hypoxemic Resp Failure needing O2, *suspect COPD and acute COPD exacerbation *RML consolidation and R pleural effusion (exudative) - was treated with outpatient antibiotics without improvement, no fever or high white count, Concern at this time for postobstructive pneumonia *suspicion for non-small cell lung cancer with mets to pleural space and metastatic pleural effusion *Absence of fever, normal wbc, and normal procalcitonin here *serum LDH > 1400 *Ao valve vegetation incidentally noted on echo (otherwise nl echo) though no fever here and nothing to currently suggest endocarditis clinically *adrenal gland nodule on CT stable from prior study *hx of treated Hep C: cirrhosis and suggestion of portal HTN seen on CT at present; also a couple of hepatic cysts that appear likely benign to me *hx of Bladder Cancer At this time with cytology back from pleural fluid showing likely non-small cell lung cancer cells she will need more definitive diagnosis. No definite mass seen on the CT but she has infiltrate that may high things, and raises suspicion for postobstructive pneumonia. I reviewed with Dr. Tang today who agrees that bronchoscopy would be a next diagnostic step. I have reviewed all of this in detail with the patient and with her son today as well and answered their questions in detail. They would prefer to trying to bronchoscopy here before she leaves the hospital, so we are attempting to see if can be scheduled tomorrow Monday. If it cannot be done over the weekend she will be discharged in come back this coming week for outpatient bronchoscopy with Dr. 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 Exam: alert oriented relaxed Fairly thin woman with minimal subcutaneous fat skin warm dry color ok resps not labored at rest on oxygen lungs clear BSs though diminished heart regular abd soft nondistended nontender, bowel sounds present limbs warm, no edema iv site ok Lab data: pleural fluid studies: LDH 1989 (serum 1400), 2200 wbc (41% lymph, 6% pmn), 1400 rbc, pH 7.4 micro: all cultures negative to date (blood and pleural fluid) no acid fast organisms in pleural fluid neg gram stain from pleural fl negative viral resp pcr panel Pathology: Results returned 02/16 with finding of malignant appearing cells suspicious for non-small cell lung cancer possibly adeno Objective: Vital Signs Temp Pulse Resp BP Pulse Ox 37.1 C 91 18 90/63 L 92 02/16/18 15:27 02/16/18 15:27 02/16/18 15:27 02/16/18 15:27 02/16/18 15:27 Microbiology 02/11/18 13:55 Gram Stain - Final Thoracic Fluid - Aspirate Laboratory Results 02/13/18 04:38 02/12/18 04:54 02/15/18 02/16/18 02/17/18 06:59 06:59 06:59 Intake Total 300 Balance 300 PT 15.0 SEC (12.0-15.0) 02/11/18 11:55 INR 1.16 (0.83-1.16) 02/11/18 11:55 - Time Spent With Patient Time Spent with Patient: greater than 35 minutes Time Spent with Patient: Greater than 35 minutes spent on this patients care, greater than 50% of time spent counseling, educating, and coordinating care regarding the above mentioned plan. ICD10 Worksheet Patient Problems: Problems Problem Status Onset Acute respiratory failure Acute Chronic Disease Mgmt/Transitional Care Acute Pneumonia Acute
[2018-02-16] MEDS: MBX SOLN 30 ML BOTTLE PO PRN (21:10)
[2018-02-16] MEDS: LORazepam 0.5 MG TAB PO PRN (21:38)
[2018-02-17] MEDS: predniSONE 20 MG TAB PO SCH (08:23)
[2018-02-17] MEDS: ESCITALOPRAM OXALATE 10 MG TAB PO SCH (08:23)
[2018-02-17] MEDS ORDERED: ALBUTEROL 3 ML DEYVIAL ONE (10:03)
[2018-02-17] MEDS ORDERED: LIDOCAINE 1% 300 MG/30 ML SDV ONE ×2 (10:04)
[2018-02-17] MEDS ORDERED: EPINEPHrine 1 MG/ML INJ ONE (10:04)
[2018-02-17] MEDS ORDERED: LIDOCAINE 2% JELLY 20 ML (UROJECT) ONE (10:14)
[2018-02-17] MEDS ORDERED: fentaNYL 100 MCG/2 ML INJ ONE (11:06)
[2018-02-17] MEDS ORDERED: MIDAZOLAM 2 MG/2 ML VIAL ONE (11:06)
[2018-02-17] MEDS ORDERED: OXYMETAZOLINE 30 ML NASAL SPRAY ONE (11:14)
[2018-02-17] MEDS ORDERED: predniSONE 5 MG TAB PO SCH (13:28)
--- NOTE | 2018-02-17 13:28 | HOSPPROG ---
Hospitalist Progress Note Assessment/Plan: *Acute Hypoxemic Resp Failure needing O2, * will need home o2 *acute COPD exacerbation * weaning steroids *RML consolidation and R pleural effusion (exudative) - was treated with outpatient antibiotics without improvement, no fever or high white count, Concern at this time for postobstructive pneumonia * watch off abx *suspicion for non-small cell lung cancer with mets to pleural space and metastatic pleural effusion * positive adenoCa on pleural fluid * s/p bronch - haven't seen report yet *Ao valve vegetation incidentally noted on echo (otherwise nl echo) though no fever here and nothing to currently suggest endocarditis clinically *adrenal gland nodule on CT stable from prior study *hx of treated Hep C: cirrhosis and suggestion of portal HTN seen on CT at present; also a couple of hepatic cysts that appear likely benign to me *hx of Bladder Cancer Subjective: s/p bronch. feels weak Objective: Vital Signs Temp Pulse Resp BP Pulse Ox 37.2 C 71 16 179/106 H 96 02/17/18 12:37 02/17/18 12:37 02/17/18 12:37 02/17/18 12:37 02/17/18 12:37 Microbiology 02/11/18 13:55 Gram Stain - Final Thoracic Fluid - Aspirate Laboratory Results 02/13/18 04:38 02/12/18 04:54 02/16/18 02/17/18 02/18/18 05:59 05:59 05:59 Intake Total 0 100 Balance 0 100 PT 15.0 SEC (12.0-15.0) 02/11/18 11:55 INR 1.16 (0.83-1.16) 02/11/18 11:55 - Physical Exam Constitutional: no apparent distress, appears nourished, not in pain Eyes: anicteric sclera, EOMI Ears, Nose, Mouth, Throat: moist mucous membranes Cardiovascular: regular rate and rhythym Respiratory: no respiratory distress, reduced air movement Gastrointestinal: normoactive bowel sounds, soft, non-tender abdomen, no palpable masses Skin: warm Neurologic: AAOx3 Psychiatric: interacting appropriately, not anxious, not encephalopathic, thought process linear ICD10 Worksheet Patient Problems: Problems Problem Status Onset Acute respiratory failure Acute Chronic Disease Mgmt/Transitional Care Acute Pneumonia Acute
--- NOTE | 2018-02-17 14:36 | PDINTPN ---
Stock Broker Progress Note Assessment/Plan: ASSESSMENT 82-year-old female with longstanding smoking history and COPD admitted with AECOPD, resolving pneumonia and complicated lymphocytic parapneumonic effusion. Some concern for postobstructive pneumonia given right middle lobe collapse however no endoscopic lesions or extrinsic compressions of airways. Pleural fluid is concerning for malignancy given preliminary cytology concern for adenocarcinoma. If this is truly adenocarcinoma stage IV by definition based on pleural effusion. However may be false-positive in the same atypical infection. Bronchoscopy with BA and transbronchial biopsies performed 2017. Differential diagnosis for lymphocytic effusions include malignancy, TB pleurisy, autoimmune disease, benign asbestos related pleural effusion, idiopathic. PH was normal however meter pH is on pleural fluid are frequently running correctly and not reliable. Typically glucose levels, WBC and LDH are most indicative of bacterial infection. Is also possible that patient has an obstructing endobronchial lesion in her right middle lobe leading to right middle lobe collapse with surrounding pneumonia. I think this is less likely however possible. Given advanced age and frailty patient is not a good surgical candidate will be treated with local XRT if there is truly an endobronchial lesion. However [place] appearing right middle lobes and associated right middle lobe atelectasis a relatively common the population. After risk benefit discussion with patient we have decided to perform repeat CT chest in 4-6 weeks with PFTs and repeat laboratory data including LDH. If abnormalities persist at that time will proceed with bronchoscopy # complicated parapneumonic effusion, lymphocytic. Possible adenocarcinoma as above # resolving pneumonia # COPD # acute hypoxemic respiratory failure # tobacco dependence # possible underlying malignancy PLAN # needs close follow-up with Dr. Tang in 7-14 days with repeat CXR just prior to visit to evaluate effusion and discussed bronchoscopy results # will need outpatient PET to evaluate for occult primary malignancy and other metastatic disease # anticipate patient will need nocturnal oxygen therapy # agree with rapidly tapering off oral corticosteroids # patient will need PFTs to qualify for pulmonary rehab, but I agree that rehabilitation is an excellent idea and will decrease future hospitalizations and improve quality of life # counseled on smoking cessation # okay to discharge from pulmonary perspective # thank you for this consult allowing me to participate in the care of this patient. Please do not hesitate to call or page with any questions or concerns. Imaging I personally reviewed interpreted patient's radiographic images well as formal radiology reads 02/17/2018 CXR no large postoperative pneumothorax. Chronic bronchitis and interstitial changes with hyperinflation as described. Right-sided pleural effusion has recurred, small Subjective: Patient continues to do well. Still with some cough. Inpatient bronchoscopy performed this morning given consent for postobstructive pneumonia and malignancy. No new fevers chills nausea vomiting. No new rashes Objective: Vital Signs Temp Pulse Resp BP Pulse Ox 37.2 C 71 16 179/106 H 96 02/17/18 12:37 02/17/18 12:37 02/17/18 12:37 02/17/18 12:37 02/17/18 12:37 Microbiology 02/11/18 13:55 Gram Stain - Final Thoracic Fluid - Aspirate Laboratory Results 02/13/18 04:38 02/12/18 04:54 02/16/18 02/17/18 02/18/18 05:59 05:59 05:59 Intake Total 0 100 Balance 0 100 PT 15.0 SEC (12.0-15.0) 02/11/18 11:55 INR 1.16 (0.83-1.16) 02/11/18 11:55 Physical Exam - Physical Exam General Appearance: WD/WN, alert EENT: PERRL/EOMI, normal ENT inspection Neck: non-tender, full range of motion Respiratory: other (Decreased breath sounds bilaterally, no accessory use, no) Cardiac/Chest: normal peripheral pulses (Tachypnea), regular rate, rhythm, No edema Abdomen: normal bowel sounds, non-tender, soft Skin: normal color, warm/dry, No cyanosis, No mottled Extremities: normal range of motion, non-tender Neuro/Psych: no motor/sensory deficits, alert, normal mood/affect, oriented x 3 ICD10 Worksheet Patient Problems: Problems Problem Status Onset Acute respiratory failure Acute Chronic Disease Mgmt/Transitional Care Acute Pneumonia Acute
--- NOTE | 2018-02-17 14:40 | PDHPUP ---
History & Physical Update H&P update statement: This history and physical update is based on an assessment of the patient which was completed after admission or registration (within 24 hours), but prior to the surgery/procedure. H&P update: H&P reviewed & patient examined, no change in patient's condition since H&P completed
--- NOTE | 2018-02-17 14:40 | PDPROPOC ---
Sedation Plan of Care Sedation Plan of Care: vital signs stable, mental status noted, patient educated of risks, benefits, alternatives, patient can tolerate sedation ASA Classification: ASA 3 Planned drugs: fentanyl, midazolam Mallampati Score: Class 1 Mallampati Reference Image: Patient passed 3-3-2 rule?: Yes
[2018-02-17] MEDS: LORazepam 0.5 MG TAB PO PRN (20:36)
[2018-02-18] MEDS: ESCITALOPRAM OXALATE 10 MG TAB PO SCH (09:57)
--- NOTE | 2018-02-18 10:18 | PDHOMEO2F ---
Home Oxygen Face to Face Home Orders: I certify that a physician or a nurse practitioner or physician's assistant infant toddler teacher has had a [id number] encounter with this patient on the date of this order due to the diagnosis listed, which relates to the primary reason the patient requires home oxygen. Alternative treatments have been tried, or considered, and deemed ineffective. It is anticipated that supplemental oxygen will result in improvement with treatment. Home oxygen qualifying diagnosis: copd SpO2 on room air (%): 79 Frequency of home oxygen needed: continuous Home oxygen liters per minute: 2.5 Home oxygen delivery device: nasal cannula Concentrator: Yes E-tanks for mobility and back up: Yes If ordering portable O2, is the patient mobile in the home?: Yes I certify that, based on these findings, the home oxygen is medically necessary for this patient for the following length of time. Length of time home oxygen needed: 99 years
--- NOTE | 2018-02-18 11:28 | GDS ---
DISCHARGE DIAGNOSES: 1. Acute hypoxic respiratory failure. 2. Right middle lobe consolidation. 3. Right pleural effusion. 4. Aortic valve vegetation. 5. History of hepatitis C. 6. History of bladder cancer. HISTORY: This is an 82-year-old female who was diagnosed with pneumonia about 10 days ago. She was initially treated with azithromycin and Levaquin. She presented to the hospital with worsening cough and shortness of breath. STUDIES/PROCEDURES: 1. CT scan of the chest, which showed prominent diffuse interstitial markings and focal dense consol idation in the inferior aspect of right upper lobe and bilateral pleural effusions. 2. CT scan of the abdomen shows findings suggestive of cirrhosis, which is stable. 3. Echocardiogram: Normal EF, possible vegetation on the aortic valve. 4. Bronchoscopy, which did not show any obvious endobronchial lesions. HOSPITAL COURSE: Patient was admitted with the above issues. Thoracentesis was done for pleural eff usions. Pathology did come back suggestive of adenocarcinoma. She then underwent bronchoscopy with no endobronchial lesions seen. She finished a course of antibiotics. She continued on her prednison e taper. She will need oxygen at home. She will follow up with Pulmonology for results of the biops ies from the bronchoscopy and for further plan. DISPOSITION: Home. DISCHARGE MEDICATIONS: She is to continue home medicines. She will continue on prednisone for 10 mg daily for next 3 days and stop. FOLLOWUP INSTRUCTIONS: She is instructed to follow up with Dr. Tang in 7 to 10 days. I have giv en a prescription for chest x-ray, which she should get done prior to the appointment. She will be s ent home with home oxygen as well. TIME SPENT: Greater than 30 minutes was spent on discharge. /[id number]/MODL
[2018-02-18 12:59] VITALS: BP 77/52
--- NOTE | 2018-02-28 12:21 | BVPULMO ---
[facility] Surgical Services- Pulmonology Patient Name: Zakia Francisco Procedure Date: 02/17/2018 10:06 AM Patient Type: Inpatient Attending MD/ER Physician: Eron Tang , Procedure: Bronchoscopy Indications: Right middle lobe mass, Atelectasis of the right middle lobe Providers: Eron Tang Medicines: Lidocaine 1% applied to cords 3 mL, Lidocaine 4% applied to nares 3 mL, Lidocai ne 1% applied to the tracheobronchial tree 6 mL, Lidocaine 4% Nebulizer 3 mL, Midazol am 3 mg mg IV, Fentanyl 75 mcg IV, Oxygen 10 L/min Complications: No immediate complications Procedure: After informed consent, a time out was performed. N95 masks were worn, and the procedure was done in a negative pressure room. The patient was given appropria te topical anesthesia and intravenous sedation. The fiberopic bronchoscope was pas sed via a bite block orally into the larynx and subsequently into the lower trachea bronchial tree. Throughout the procedure, the patient's blood pressure, pulse, and oxygen saturations were monitored continuously. The Bronchoscope (Video) was introduced through the left nostril and advanced to the tracheobronchial tree. The patient tolerated the procedure fairly well. Findings: The nasopharynx/oropharynx appears normal. The larynx appears normal. The vocal cords appear normal. The subglottic space is normal. The trachea is of normal caliber. The enoch is sharp. The tracheobronchial tree was examined to at leas t the first subsegmental level. Bronchial mucosa and anatomy are normal; there are no endobronchial lesions, and no secretions. Normal larynx. The vocal cords appear normal. The laryngeal mask airway is in good position. The vocal cords appear normal. T he subglottic space is normal. The trachea is of normal caliber. The enoch is sha rp. The tracheobronchial tree was examined to at least the first subsegmental level . Bronchial mucosa and anatomy are normal; there are no endobronchial lesions, an d no secretions. The nasopharynx/oropharynx appears normal. The larynx appears normal. The vocal cords appear normal. The subglottic space is normal. The trachea is of normal caliber. The enoch is sharp. The tracheobronchial tree was examined to at leas t the first subsegmental level. Bronchial mucosa and anatomy are normal; there are no endobronchial lesions, and no secretions. Bronchoalveolar lavage was performed in the RML lateral segment (B4) and in the RML medial segment (B5) of the lung and sent for cell count, bacterial culture, vir al smears & culture, and fungal & AFB analysis and cytology. 100 mL of fluid were instilled. 35 mL were returned. The return was blood-tinged. There were no muco id plugs in the return fluid. Transbronchial biopsies of an area of infiltration were performed in the right middle lobe using alligator forceps and sent for histopathology examination and microbiology analysis. Biopsy of lung tissue was obtained. Six biopsy passes we re performed. Six biopsy samples were obtained. Post Op Diagnosis: - Right middle lobe mass - Atelectasis of the right middle lobe - The airway examination was normal. - Bronchoalveolar lavage was performed. - Transbronchial lung biopsies were performed. - frialble tissue in lateral seg of RML otherwise normal anatomy and airway muc frankie. No extrinsic airways compression, no endobronchial lesion Estimated Blood Loss: Estimated blood loss was minimal. Recommendation: - Await BAL and biopsy results. Attending Participation: I personally performed the entire procedure. Roxy HANDLEY Eron Tang, 02/17/2018 2:58:02 PM Number of Addenda: 1 Note Initiated On: 02/17/2018 10:06 AM Addendum Number: 1 Addendum Date: 02/17/2018 2:58:35 PM Conscious sedation was performed. Vitals were monitored continuously throughout by dedicated RN as well as physician Total conscious sedation time 25 min Clyde.Eron HANDLEY Eron Tang, 02/17/2018 2:59:18 PM [email or web address]
--- NOTE | 2018-03-05 07:32 | PQFORM ---
PHYSICIAN QUERY FORM Needs Your Response This query form is being sent to you to assure this patient record is coded properly. Please respond to the question below: SERVICE ELECTRICIAN QUESTION: Dr Amanda The Path Report is back on this patients biopsy. Do you agree with the impression on the report specifying Adenocarcinoma of the Lung ? ___x Yes ___ No ___ Other (Please Specify ) ___ Undetermined Thank You Keke GARCIA Gin Pole Operator INSTRUCTIONS FOR RESPONSE: Answer question by clicking on the "Edit Document" button. Move cursor to area below the stars. When complete, hit "Save." Click on the "Sign" button, then click "Sign" again. Type in your PIN and hit "Enter." MTDD
== END 2018-02-18 14:57 | disposition home or self-care (01) | DRG 166 ==
LOC: F3E 13:41
PROVIDERS: ADMIT Student in an Organized Health Care Education/Training Program; ATTEND Student in an Organized Health Care Education/Training Program
PROC: 0W993ZX Drainage of Right Pleural Cavity, Percutaneous Approach, Diagnostic (ICD-10-PCS; 2018-02-12)
PROC: 0BBD8ZX Excision of Right Middle Lung Lobe, Via Natural or Artificial Opening Endoscopic, Diagnostic (ICD-10-PCS; principal; 2018-02-17 11:15)
PROC: 0B9D8ZX Drainage of Right Middle Lung Lobe, Via Natural or Artificial Opening Endoscopic, Diagnostic (ICD-10-PCS; principal; 2018-02-17 11:15)
DX: J96.01 Acute respiratory failure with hypoxia (principal); J44.1 Chronic obstructive pulmonary disease with (acute) exacerbation; J44.0 Chronic obstructive pulmonary disease with (acute) lower respiratory infection; J18.9 Pneumonia, unspecified organism; C34.2 Malignant neoplasm of middle lobe, bronchus or lung; B19.20 Unspecified viral hepatitis C without hepatic coma; F32.9 Major depressive disorder, single episode, unspecified; Z85.51 Personal history of malignant neoplasm of bladder; F17.210 Nicotine dependence, cigarettes, uncomplicated
CPT/HCPCS: 84134-90; 96365; 97116-GP; 97161-GP; 97165-GO; G8978-GP-CI; G8979-GP-CI; G8980-GP-CI; G8987-GO-CI; G8988-GO-CI; G8989-GO-CI; J0171; J1940; J1956; J2250; J2930; J3010; J7512; J7613; Q9967

== ENCOUNTER → 2018-02-22 | Outpatient (CLI) | payer OTHER | LOC: FIMAGING 11:18 | PROVIDERS: ATTEND Internal Medicine | DX: J90 Pleural effusion, not elsewhere classified (principal) ==